=== PATIENT | female | born 2005 | race Asian ===

== ENCOUNTER 2025-02-08 06:12 | Outpatient (REF) | payer OTHER, SELFPAY ==
--- NOTE | ~2025-02-08 | US_ITS ---
EXAMINATION: US PELVIS CLINICAL INFORMATION: Amenorrhea. PCDS COMPARISON: None available. TECHNIQUE: Ultrasound of the pelvis is performed using transabdominal approach transducers along with Doppler. Transvaginal imaging is no performed due to patient's intolerance. FINDINGS: Uterus: The uterus is anteverted and measures 7 x 3 x 4 cm. Volume: 39 cc. The double wall endometrial thickness is 3 mm. The uterus is smooth in contour and has normal myometrial echogenicity. No visible fibroid. Adnexa: Both ovaries are visualized. There is normal color flow to the adnexa. There is no ovarian torsion. There is no pelvic ascites or fluid collection. Right ovary measures 3 x 2 x 3 cm. Volume: 10 cc. Left ovary measures 3 x 3 x 3 cm. Volume: 14 cc. US/US pelvic complete IMPRESSION: Normal transabdominal pelvic ultrasound. Electronically signed by: Sandor Medina MD 02/08/2025 09:43 AM EDT
== END 2025-02-08 06:13 | disposition home or self-care (01) ==
LOC: HO.UMASIMG 06:12
PROVIDERS: Visit Provider Family Medicine
DX: N91.1 Secondary amenorrhea (principal)
CPT/HCPCS: 76830; 76856

== ENCOUNTER → 2025-02-08 09:13 | Outpatient (BNV) | payer OTHER, SELFPAY | PROVIDERS: Visit Provider Radiology Diagnostic Radiology | DX: N91.0 Primary amenorrhea (principal) | CPT/HCPCS: 76830; 76856 ==